=== PATIENT | male | born 1945 | race Caucasian/White ===

== ENCOUNTER 2024-01-31 05:30 | Day surgery (SDC) | payer OTHER ==
[2024-01-29 13:56] VITALS: BMI 31.3
[2024-01-31] MEDS ORDERED: fentaNYL 50 mcg/mL 1 mL Vial ONE (06:31)
[2024-01-31] MEDS ORDERED: Midazolam HCl 2 mg/2 ml Vial ONE (06:32)
[2024-01-31] MEDS ORDERED: Lidocaine 1% (PF) 30 ML VIAL ONE ×2 (06:32→06:45)
[2024-01-31] MEDS ORDERED: EPINEPHrine 1 MG/ML VIAL ONE ×2 (06:45→07:59)
[2024-01-31] MEDS ORDERED: CEFAZOLIN 2 GM VIAL ONE (06:52)
[2024-01-31] MEDS ORDERED: Sodium Chloride 0.9% 100 ML ONE (06:52)
[2024-01-31] MEDS ORDERED: Lidocaine 2% PF 5 ML VIAL ONE (07:11)
[2024-01-31] MEDS ORDERED: PROPOFOL 20 ML ONE (07:11)
[2024-01-31] MEDS ORDERED: Sodium Chloride 0.9% 250 ML 250 ML ONE (07:12)
[2024-01-31] MEDS ORDERED: traMADol HCl 50 MG TAB PO PRN ×2 (07:15)
[2024-01-31] MEDS ORDERED: Promethazine HCl 25 MG/ML VIAL IM PRN (07:15)
[2024-01-31] MEDS ORDERED: Zolpidem Tartrate 5 MG TAB PO PRN (07:15)
[2024-01-31] MEDS ORDERED: Ropivacaine 0.2% 550 ML 550 ML NERVE BLCK SCH (07:15)
[2024-01-31] MEDS ORDERED: HYDROcodone/Acetaminophen 5/325 mg Tablet PO PRN ×2 (07:15)
[2024-01-31] MEDS ORDERED: Ondansetron PF 4 MG/2 ML Vial IVP PRN (07:15)
[2024-01-31] MEDS ORDERED: Phenylephrine 10 MG/ML VIAL ONE (07:22)
[2024-01-31] MEDS ORDERED: Bupivacaine PF 0.5% 30 ML VIAL ONE (07:59)
== END 2024-01-31 10:54 | disposition home or self-care (01) ==
LOC: SDC 05:30
PROVIDERS: ATTEND Orthopaedic Surgery
PROC: 0RBK4ZZ Excision of Left Shoulder Joint, Percutaneous Endoscopic Approach (ICD-10-PCS; principal; 2024-01-31)
PROC: 0LS44ZZ Reposition Left Upper Arm Tendon, Percutaneous Endoscopic Approach (ICD-10-PCS; principal; 2024-01-31)
DX: M75.22 Bicipital tendinitis, left shoulder (principal); S46.012A Strain of muscle(s) and tendon(s) of the rotator cuff of left shoulder, initial encounter; S46.102A Unspecified injury of muscle, fascia and tendon of long head of biceps, left arm, initial encounter; S43.432A Superior glenoid labrum lesion of left shoulder, initial encounter; M75.52 Bursitis of left shoulder; E11.9 Type 2 diabetes mellitus without complications; I10 Essential (primary) hypertension; F43.10 Post-traumatic stress disorder, unspecified; Z95.1 Presence of aortocoronary bypass graft; Z79.899 Other long term (current) drug therapy; W19.XXXA Unspecified fall, initial encounter
CPT/HCPCS: 36416; A4306; J0171; J0665; J2001; J2250; J2371; J2704; J2795; J3010; J3490; J7050